=== PATIENT | female | born 1990 | race Caucasian/White ===

== ENCOUNTER 2020-03-26 11:41 | Emergency (ER) | payer BC ==
[2020-03-26] MEDS ORDERED: NORMAL SALINE 1000 ML 1,000 ML IV ONE (12:17)
[2020-03-26] MEDS ORDERED: METOCLOPRAMIDE HCL INJ/PF 10 MG/2 ML SDV IV ONE (12:18)
--- NOTE | 2020-03-26 12:20 | ER Document Report ---
ED Medical Screen (RME) - General Chief Complaint: Abdominal Pain Stated Complaint: ABDOMINAL PAIN Time Seen by Provider: 03/26/20 12:13 Mode of Arrival: Ambulatory Information source: Patient Notes: HPI; 30-year-old female presents to the emergency room with sudden onset of vomiting, diarrhea, and right-sided abdominal pain that started around 3 AM. Denies fevers, denies urinary symptoms. Denies any bad food. No recent antibiotics. Patient states she used to be a daily drinker but she stopped drinking heavily approximately 5 months ago however she states she did have 2 beers last night. States is unable to tolerate anything p.o. today. No known recent COVID-19 exposure. Positive exposure in June. PE: Alert and oriented x3. Lungs: Clear to auscultation without rales, rhonchi, wheezes. Heart: Tachycardic without murmurs, rubs, gallops. I have greeted and performed a rapid initial assessment of this patient. A comprehensive ED assessment and evaluation of the patient, analysis of test results and completion of the medical decision making process will be conducted by additional ED providers. I have specifically instructed the patient or family members with the patient to immediately return to any nursing staff should anything change in the patient's condition or with their chief complaint. TRAVEL OUTSIDE OF THE [place] IN LAST 30 DAYS: No - Related Data Allergies/Adverse Reactions: No Known Allergies Allergy (Verified 03/26/20 12:13) Past Medical History - Social History Drug Abuse: Marijuana Physical Exam - Vital signs Vitals: Temp Pulse Resp BP Pulse Ox 97.6 F 107 H 20 99/71 L 97 03/26/20 11:49 03/26/20 11:49 03/26/20 11:49 03/26/20 11:49 03/26/20 11:49 Course - Vital Signs Vital signs: Temp Pulse Resp BP Pulse Ox 97.6 F 107 H 20 99/71 L 97 03/26/20 11:49 03/26/20 11:49 03/26/20 11:49 03/26/20 11:49 03/26/20 11:49
[2020-03-26 13:16] LABS: ABSOLUTE MONOCYTES (AUTO) 0.4 10^3/uL (0.1-1.4); ABSOLUTE NEUT (AUTO) 9.2 10^3/uL (1.7-8.2); BASOPHILS % (AUTO) 0.2 % (0-2); HEMATOCRIT 41.3 % (36.0-47.0); HEMOGLOBIN 14.2 g/dL (12.0-15.5); LYMPHOCYTES % (AUTO) 9.2 % (13-45); MEAN CORPUSCULAR HEMOGLOBIN 29.7 pg (27.0-33.4); MEAN CORPUSCULAR HGB CONC 34.2 g/dL (32.0-36.0); MEAN CORPUSCULAR VOLUME 87 fl (80-97); MONOCYTES % (AUTO) 3.6 % (3-13); PLATELET COUNT 234 10^3/uL (150-450); RED BLOOD COUNT 4.77 10^6/uL (3.72-5.28); RED CELL DISTRIBUTION WIDTH 13.1 % (11.5-14.0); TOTAL CELLS COUNTED % (AUTO) 100 %; WHITE BLOOD COUNT 10.6 10^3/uL (4.0-10.5)
[2020-03-26 13:32] LABS: ALBUMIN 4.9 g/dL (3.5-5.0); ALKALINE PHOSPHATASE 48 U/L (38-126); ANION GAP 10 (5-19); ASPARTATE AMINO TRANSFERASE 25 U/L (14-36); BILIRUBIN,TOTAL 0.7 mg/dL (0.2-1.3); BLOOD UREA NITROGEN 14 mg/dL (7-20); CALCIUM 9.9 mg/dL (8.4-10.2); CARBON DIOXIDE 22 mmol/L (22-30); CHLORIDE 108 mmol/L (98-107); GLUCOSE 88 mg/dL (75-110); POTASSIUM 4.2 mmol/L (3.6-5.0); TOTAL PROTEIN 7.8 g/dL (6.3-8.2)
--- NOTE | 2020-03-26 13:34 | ER Document Report ---
ED GI/ - General Chief Complaint: Abdominal Pain Stated Complaint: ABDOMINAL PAIN Time Seen by Provider: 03/26/20 12:13 Mode of Arrival: Ambulatory Notes: CHIEF COMPLAINT: Sudden onset right lower quadrant pain this morning HPI: 30-year-old female presenting to the emergency department complaining of sudden onset of right lower quadrant pain that woke her from sleep this morning. Patient woke up with multiple episodes of nausea vomiting then developed sharp pain in the right lower quadrant that has been fairly constant since onset. Does not change with position movement or walking. No dysuria. No fever or recent illness patient felt fine going to bed last night ROS: See HPI - all other systems were reviewed and are otherwise negative Constitutional: no fever Eyes: no drainage, no blurred vision ENT: no runny nose, no sore throat Cardiovascular: no chest pain Resp: no SOB, no cough GI: Positive vomiting, no diarrhea, positive abdominal pain : no dysuria Integumentary: no rash Allergy: no hives Musculoskeletal: no extremity pain or swelling Neurological: no numbness/tingling, no weakness MEDICATIONS: I agree with the patient medications as charted by the RN. ALLERGIES: I agree with the allergies as charted by the RN. PAST MEDICAL HISTORY/PAST SURGICAL HISTORY: Reviewed and agree as charted by RN. SOCIAL HISTORY: Reviewed and agree as charted by RN. FAMILY HISTORY: No significant familial comorbid conditions directly related to patient complaint EXAM: Reviewed vital signs as charted by RN. CONSTITUTIONAL: Alert and oriented and responds appropriately to questions. Well-appearing; well-nourished HEAD: Normocephalic; atraumatic EYES: PERRL; Conjunctivae clear, sclerae non-icteric ENT: normal nose; no rhinorrhea; moist mucous membranes; pharynx without lesions noted, no uvula edema or deviation, no tonsillar hypertrophy, phonation normal NECK: Supple without meningismus; non-tender; no cervical lymphadenopathy, no masses CARD: RRR; no murmurs, no clicks, no rubs, no gallops; symmetric distal pulses RESP: Normal chest excursion without splinting or tachypnea; breath sounds clear and equal bilaterally; no wheezes, no rhonchi, no rales, pulse oximetry 97% on room air not hypoxic ABD/GI: Normal bowel sounds; non-distended; soft, tenderness in the right lower quadrant on palpation not low down in the pelvis but over McBurney's point, no rebound, no guarding; no palpable organomegaly or masses. BACK: The back appears normal and is non-tender to palpation, there is no CVA tenderness EXT: Normal ROM in all joints; non-tender to palpation; no cyanosis, no effusions, no edema SKIN: Normal color for age and race; warm; dry; good turgor; no acute lesions noted NEURO: Moves all extremities equally; Motor and sensory function intact PSYCH: The patient's mood and manner are appropriate. Grooming and personal hygiene are appropriate. MDM: 30-year-old female sudden onset of right lower quadrant pain and vomiting this morning at 3 AM. Initially had nausea vomiting then developed the abdominal pain. It is somewhat reproducible to palpation. Differential is large would include appendicitis kidney stone torsion, ovarian cyst. Will initially obtain CT imaging, screening labs ordered via triage process TRAVEL OUTSIDE OF THE [place] IN LAST 30 DAYS: No - Related Data Allergies/Adverse Reactions: No Known Allergies Allergy (Verified 03/26/20 12:13) Past Medical History - General Information source: Patient - Social History Smoking Status: Current Some Day Smoker Drug Abuse: Marijuana Family History: Reviewed & Not Pertinent Past Surgical History: Reports: Hx Cholecystectomy Physical Exam - Vital signs Vitals: Temp Pulse Resp BP Pulse Ox 97.6 F 107 H 20 99/71 L 97 03/26/20 11:49 03/26/20 11:49 03/26/20 11:49 03/26/20 11:49 03/26/20 11:49 Course - Re-evaluation Re-evalutation: 03/26/20 17:21 We discussed patient's exam findings. Patient CT and ultrasound are both negative for acute findings. Labs are negative for acute findings. No de finitive reason found for patient's discomfort today. Patient is okay with this. We will place her on Bentyl, Zofran, GI follow-up with strict return precautions - Vital Signs Vital signs: Temp Pulse Resp BP Pulse Ox 97.6 F 107 H 20 99/71 L 97 03/26/20 11:49 03/26/20 11:49 03/26/20 11:49 03/26/20 11:49 03/26/20 11:49 - Laboratory Result Diagrams: 03/26/20 12:59 03/26/20 12:59 Laboratory results interpreted by me: 03/26/20 03/26/20 03/26/20 12:25 12:59 12:59 WBC 10.6 H Lymph % (Auto) 9.2 L Absolute Neuts (auto) 9.2 H Seg Neutrophils % 87.0 H Chloride 108 H Urine Protein 30 H Urine Ketones 80 H Ur Leukocyte Esterase MODERATE H Discharge - Discharge Clinical Impression: Abdominal pain, right lower quadrant Condition: Stable Disposition: HOME, SELF-CARE Additional Instructions: Take the Bentyl for abdominal pain or spasm. Take Zofran for nausea or vomiting. Hydrate well at home. There was not a definitive reason found for your abdominal pain and vomiting episodes today. Your CT imaging, ultrasound imaging, lab work did not show acute emergent abnormalities. Follow-up closely with gastroenterology for further evaluation and treatment if your symptoms persist return if they worsen Prescriptions: Dicyclomine HCl [Bentyl 20 mg Tablet] 20 mg PO Q6H PRN #20 tablet PRN Reason: Ondansetron [Zofran Odt 4 mg Tablet] 1 - 2 tab PO Q4H PRN #15 tab.rapdis PRN Reason: For Nausea/Vomiting Referrals: LORNA VAZQUEZ MD [ACTIVE STAFF] - Follow up as needed
[2020-03-26 13:59] LABS: APPEARANCE,URINE SLIGHTLY-CLOUDY; BILIRUBIN,URINE NEGATIVE (NEGATIVE); COLOR,URINE YELLOW; GLUCOSE, URINE NEGATIVE (NEGATIVE); KETONES,URINE 80 mg/dL (NEGATIVE); LEUKOCYTE ESTERASE,URINE MODERATE (NEGATIVE); NITRITE,URINE NEGATIVE (NEGATIVE); PROTEIN,URINE 30 mg/dL (NEGATIVE); URINE SPECIFIC GRAVITY 1.029; UROBILINOGEN,URINE NEGATIVE mg/dL (<2.0)
[2020-03-26] MEDS ORDERED: ONDANSETRON HCL INJ/PF 4 MG/2 ML SDV IV ONE (14:15)
[2020-03-26] MEDS ORDERED: FENTANYL CITRATE INJ/PF 100 MCG/2 ML AMPUL IV ONE (14:15)
--- NOTE | 2020-03-26 14:36 | RADIOLOGY REPORT (SQ) ---
EXAM DESCRIPTION: CT ABD/PELVIS WITH IV ONLY IMAGES COMPLETED DATE/TIME: 03/26/2020 2:18 pm REASON FOR STUDY: RLQ pain COMPARISON: None. TECHNIQUE: CT scan of the abdomen and pelvis performed using helical scanning technique with dynamic intravenous contrast injection. No oral contrast. Images reviewed with lung, soft tissue, and bone windows. Reconstructed coronal and sagittal MPR images reviewed. Delayed images for evaluation of the urinary system also acquired. All images stored on PACS. All CT scanners at this facility use dose modulation, iterative reconstruction, and/or weight based d osing when appropriate to reduce radiation dose to as low as reasonably achievable (ALARA). [facility]: Dose Right [facility]: CareDose [facility]: Dose Right [facility]: Teradose 4D [facility]: Migo.me CONTRAST TYPE AND DOSE: contrast/concentration: Isovue 350.00 mmol/ml; Total Contrast Delivered: 71. 0 ml; Total Saline Delivered: 55.0 ml RENAL FUNCTION: GFR > 60. RADIATION DOSE: CT Rad equipment meets quality standard of care and radiation dose reduction techniq ues were employed. CTDIvol: 5.1 - 5.8 mGy. DLP: 582 mGy-cm.. LIMITATIONS: None. FINDINGS: LOWER CHEST: No significant findings. No nodules or infiltrates. LIVER: Normal size. No masses. No dilated ducts. SPLEEN: Normal size. No focal lesions. PANCREAS: No masses. No significant calcifications. No adjacent inflammation or peripancreatic fluid collections. Pancreatic duct not dilated. GALLBLADDER: Surgically absent. ADRENAL GLANDS: No significant masses or asymmetry. RIGHT KIDNEY AND URETER: No solid masses. No significant calcifications. No hydronephrosis or hyd roureter. LEFT KIDNEY AND URETER: No solid masses. No significant calcifications. No hydronephrosis or hydr oureter. AORTA AND VESSELS: No aneurysm. No dissection. Renal arteries, SMA, celiac without stenosis. RETROPERITONEUM: No retroperitoneal adenopathy, hemorrhage or masses. BOWEL AND PERITONEAL CAVITY: No masses or inflammatory changes. No free fluid or peritoneal masses. APPENDIX: Normal. PELVIS: No mass. No free fluid. Normal bladder. ABDOMINAL WALL: No masses. No hernias. BONES: No significant or acute findings. OTHER: No other significant finding. IMPRESSION: NO SIGNIFICANT OR ACUTE FINDING IN THE ABDOMEN OR PELVIS ON CT SCAN WITH IV CONTRAST. TECHNICAL DOCUMENTATION: JOB ID: [id number] Quality ID # [id number]: Final reports with documentation of one or more dose reduction techniques (e.g., Au tomated exposure control, adjustment of the mA and/or kV according to patient size, use of iterative reconstruction technique) 2010 [employer]- All Rights Reserved Reading location - IP/workstation name: [email or web address]
--- NOTE | 2020-03-26 16:59 | RADIOLOGY REPORT (SQ) ---
EXAM DESCRIPTION: U/S NON OB PEL W/DOPPLER IMAGES COMPLETED DATE/TIME: 03/26/2020 1:47 pm REASON FOR STUDY: RLQ pain COMPARISON: None. TECHNIQUE: Dynamic and static grayscale images acquired of the pelvis via transabdominal approach an d recorded on PACS. Additional selected color Doppler and spectral images recorded. LIMITATIONS: Somewhat degraded evaluation of the parenchymal detail due to transabdominal technique. FINDINGS: UTERUS: Contour normal. No mass. ENDOMETRIAL STRIPE: No focal or generalized thickening. No masses. CERVIX: Grossly unremarkable. RIGHT OVARY AND DOPPLER: Normal size. No worrisome masses. Normal arterial vascular flow without evid ence for torsion. LEFT OVARY AND DOPPLER: Normal size. No worrisome masses. Normal arterial vascular flow without evide nce for torsion. FREE FLUID: None noted. OTHER: No other significant finding. MEASUREMENTS: UTERUS: 8.2 x 4.1 x 4.9 cm. ENDOMETRIAL STRIPE: 0.9 cm RIGHT OVARY: 1.8 x 0.9 x 2.1 cm LEFT OVARY: 3.1 x 3.4 x 1.6 cm. IMPRESSION: NORMAL PELVIC ULTRASOUND BY TRANSABDOMINAL TECHNIQUE. TECHNICAL DOCUMENTATION: JOB ID: [id number] [employer]- All Rights Reserved Rev-09/05 Reading location - IP/workstation name: [email or web address]
[2020-03-26 17:53] VITALS: BP 108/59
== END 2020-03-26 17:53 | disposition home or self-care (01) ==
LOC: ER 11:41
DX: R10.31 Right lower quadrant pain (principal); R11.2 Nausea with vomiting, unspecified; F17.200 Nicotine dependence, unspecified, uncomplicated
CPT/HCPCS: 99285; 96361; 96374; 96375; 36415; 87086; 83690; 84703; 85025; 80053; 81001; 76856; 93976; 74177; J3010; J2765; J2405; J7030

== ENCOUNTER 2020-04-05 06:59 | Day surgery (SDC) | payer BC ==
[2020-04-05] MEDS ORDERED: PROPOFOL INJ 200 MG/20 ML VIAL IV ONE (07:16)
[2020-04-05 09:37] VITALS: BP 118/84
--- NOTE | 2020-04-05 11:47 | Operative Report ---
Operative Report DATE OF SURGERY: 04/05/20 Operative Report: The risk, benefits and alternatives of the procedure including the risk of bleeding, perforation requiring surgery have been explained to the patient in detail and informed consent has been obtained. The patient is taken back to the endoscopy suite and placed in the left, lateral decubital position. Timeout was called. Propofol medication is administered. A rectal examination is done which did not reveal any masses, tears or fissures. An Olympus videoscope was introduced into the patient's rectum. Scope was then carefully advanced all the way to the cecum. Cecum was identified by the usual anatomical landmarks of the ileocecal valve as well as the appendiceal office. Photodocumentation is obtained. Scope was then sequentially pulled back via the various segments of the colon including the ascending colon, hepatic flexure, transverse colon, splenic flexure, descending colon and finally into the rectosigmoid portions of the colon. Retroflexion maneuver is performed. The risks benefits and alternatives of the procedure explained to the patient in detail and informed consent is obtained,A GIF Olympus video scope was inserted into the patient's mouth and hypopharynx ,the esophagus is identified intubated and insufflated, the scope was then advanced through the esophagus stomach and duodenum ,retroflexion maneuver is done, the esophagus stomach and first and second portions of the duodenum examined PREOPERATIVE DIAGNOSIS: Epigastric pain. Change in bowel habits POSTOPERATIVE DIAGNOSIS: Random biopsies taken at the terminal ileum to rule out Crohn's disease. Gastritis status post biopsy OPERATION: Colonoscopy with biopsy. EGD with biopsy SURGEON: LORNA VAZQUEZ ANESTHESIA: LMAC TISSUE REMOVED OR ALTERED: As noted above. COMPLICATIONS: None. ESTIMATED BLOOD LOSS: None. INTRAOPERATIVE FINDINGS: As noted above. PROCEDURE: Patient tolerated the procedure well. No immediate postprocedure complications are noted. Patient is discharged in good condition. Discharge date 04/05/2020. Discharge diet: Regular. Discharge activity: Regular. 2 to 3-week follow-up to discuss findings. Patient is instructed to call the office or proceed to the emergency room should there be any further problems questions. Wait on the pathology.
== END 2020-04-05 09:34 | disposition home or self-care (01) ==
LOC: END 06:59
PROVIDERS: ATTEND Internal Medicine Gastroenterology
DX: K29.50 Unspecified chronic gastritis without bleeding (principal); K50.00 Crohn's disease of small intestine without complications; Z83.79 Family history of other diseases of the digestive system
CPT/HCPCS: 43239; 45380; 88305 ×2; J2704; 813

== ENCOUNTER → 2020-04-06 | Outpatient (CLI) | payer BC | LOC: OD 14:07 | PROVIDERS: ATTEND Nurse Practitioner Family | DX: R19.5 Other fecal abnormalities (principal) | CPT/HCPCS: 36415; 85652; 86140 ==